=== PATIENT | female | born 1935 | race Caucasian/White ===

== ENCOUNTER 2021-08-22 11:33 | Outpatient (CLI) | payer MEDICARE | END 2021-08-22 11:34 | disposition home or self-care (01) | LOC: CSHLAB 11:33 | PROVIDERS: ATTEND Internal Medicine Hematology & Oncology | DX: Z20.822 Contact with and (suspected) exposure to COVID-19 (principal); D69.59 Other secondary thrombocytopenia; C85.83 Other specified types of non-Hodgkin lymphoma, intra-abdominal lymph nodes | CPT/HCPCS: 87811 ==

== ENCOUNTER 2021-09-05 10:08 | Outpatient (CLI) | payer MEDICARE | END 2021-09-05 10:09 | disposition home or self-care (01) | LOC: CSHLAB 10:08 | PROVIDERS: ATTEND Internal Medicine Hematology & Oncology | DX: Z20.822 Contact with and (suspected) exposure to COVID-19 (principal); D69.59 Other secondary thrombocytopenia; C85.83 Other specified types of non-Hodgkin lymphoma, intra-abdominal lymph nodes | CPT/HCPCS: 87811 ==

== ENCOUNTER 2021-09-08 07:52 | Day surgery (SDC) | payer MEDICARE ==
[2021-09-08] MEDS ORDERED: Sodium Bicarbonate 2.5 MEQ/5 ML VIAL ONE (08:44)
[2021-09-08] MEDS ORDERED: Lidocaine 1% PF 5 ML VIAL ONE ×2 (08:44→09:20)
[2021-09-08] MEDS ORDERED: Fentanyl 100 MCG/2 ML VIAL ONE (08:44)
[2021-09-08 09:06] VITALS: BP 163/72; TEMP 97.5
[2021-09-08] MEDS ORDERED: Midazolam HCl 2 mg/2 ml Vial ONE (10:07)
== END 2021-09-08 10:53 | disposition home or self-care (01) ==
LOC: CSHCT 07:52
PROVIDERS: ATTEND Internal Medicine Hematology & Oncology
PROC: 07DR3ZZ Extraction of Iliac Bone Marrow, Percutaneous Approach (ICD-10-PCS; principal; 2021-09-08)
DX: C85.83 Other specified types of non-Hodgkin lymphoma, intra-abdominal lymph nodes (principal); D69.59 Other secondary thrombocytopenia; R16.1 Splenomegaly, not elsewhere classified; R59.1 Generalized enlarged lymph nodes; D50.0 Iron deficiency anemia secondary to blood loss (chronic); I25.2 Old myocardial infarction; Z79.82 Long term (current) use of aspirin; Z79.01 Long term (current) use of anticoagulants; Z79.899 Other long term (current) drug therapy; Z87.891 Personal history of nicotine dependence; Z90.49 Acquired absence of other specified parts of digestive tract; Z95.0 Presence of cardiac pacemaker
CPT/HCPCS: 38222; 88184; 88237; 88264; 88280; J2250; J3010